=== PATIENT | female | born 2000 | race Two or more races ===

== ENCOUNTER 2019-01-15 06:07 | Emergency (ER) | payer MEDICAID, OTHER ==
[~2019-01-15] VITALS: Ht 142.2 cm; Wt 40.8 kg
[2019-01-15] MEDS ORDERED: IV NS 0.9% 1,000 ML BAG IV ONE (06:30)
[2019-01-15] MEDS ORDERED: LORAZEPAM INJ 2 MG/ML VIAL IV ONE (06:30)
[2019-01-15] MEDS ORDERED: LORAZEPAM INJ 2 MG/ML VIAL ONE (06:31)
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
[2019-01-15 06:41] LABS: BASOPHILS # (AUTO) 0.1 /CMM (0.0-0.2); BASOPHILS % (AUTO) 0.7 % (0.0-2.0); EOSINOPHILS % (AUTO) 1.3 % (0.0-6.0); HEMATOCRIT 36 % (33-45); LYMPHOCYTES # (AUTO) 1.8 /CMM (0.8-4.8); LYMPHOCYTES % (AUTO) 16.7 % (20.0-44.0); MEAN CORPUSCULAR HGB CONC 33 g/dl (31.0-36.0); MEAN CORPUSCULAR VOLUME 80 fL (82-100); MONOCYTES # (AUTO) 0.8 /CMM (0.1-1.30); MONOCYTES % (AUTO) 7.2 % (2.0-12.0); NEUTROPHILS # (AUTO) 8.2 /CMM (1.8-8.9); NEUTROPHILS % (AUTO) 74.1 % (43.0-81.0); PLATELET COUNT (AUTO) 246 /CMM (150-450); RED BLOOD CELL COUNT(AUTO) 4.52 MIL/uL (4.0-5.2); WHITE BLOOD COUNT (AUTO) 11.1 K/uL (4.3-11.0)
[2019-01-15 06:47] LABS: CALCIUM, SERUM 8.8 mg/dL (8.5-10.1); CARBON DIOXIDE 22 mmol/L (21-32); CHLORIDE 100 mmol/L (98-107); CREATININE 0.6 mg/dL (0.6-1.3); GLUCOSE 117 mg/dL (74-106); SODIUM SERUM 136 mmol/L (136-145); UREA NITROGEN, BLOOD 9 mg/dL (7-18)
[2019-01-15 06:49] LABS: POTASSIUM 2.6 mmol/L (3.5-5.1)
[2019-01-15] MEDS ORDERED: POTASSIUM CHLORIDE 20 MEQ TAB.PRT.SR PO ONE ×2 (06:56→07:00)
[2019-01-15 06:58] LABS: ACETAMINOPHEN < 2 ug/ml (10-30); ALANINE AMINOTRANSFERASE 21 U/L (12-78); ALCOHOL, BLOOD < 3 mg/dL (0-0); ALKALINE PHOSPHATASE 70 U/L (46-116); ASPARTATE AMINOTRANSFERASE 17 U/L (15-37); BILIRUBIN,DIRECT 0.2 mg/dL (0.0-0.2); SALICYLATE < 2.8 mg/dL (2.8-20.0); TOTAL PROTEIN, SERUM 8.2 g/dL (6.4-8.2)
[2019-01-15 07:08] LABS: APPEARANCE,URINE SL CLOUDY (CLEAR); BILIRUBIN,URINE 1+ (NEGATIVE); BLOOD, URINE NEGATIVE Ery/uL (NEGATIVE); COLOR,URINE DARK YELLO (YELLOW); KETONES,URINE 3+ (NEGATIVE); LEUKOCYTE ESTERASE ,URINE NEGATIVE (NEGATIVE); NITRITE, URINE NEGATIVE (NEGATIVE); PROTEIN,URINE 2+ mg/dl (NEGATIVE); UGLUCOSE NEGATIVE (NEGATIVE)
--- NOTE | 2019-01-15 07:13 | NUR ---
ENDORSED REPORT TO TIP
[2019-01-15 07:28] LABS: BACTERIA,URINE Few /HPF (None Seen); MUCUS,URINE Few /LPF (None Seen); RBC,URINE 0-2 /HPF (0-2); WBC,URINE 0-2 /HPF (0-3)
[2019-01-15 07:29] LABS: COARSE GRANULAR CASTS,URINE Few /LPF (None Seen); URINE AMORPHOUS URATE Few /HPF (None Seen)
--- NOTE | 2019-01-15 08:45 | NUR ---
[facility] service on site and seen the patient.
--- NOTE | 2019-01-15 10:00 | NUR ---
Patient pulled out her IV MD made aware.
[2019-01-15] MEDS ORDERED: OLANZAPINE 5 MG TABLET PO ONE (10:30)
[2019-01-15] MEDS ORDERED: OLANZAPINE 5 MG TABLET ONE (10:31)
--- NOTE | 2019-01-15 14:17 | NUR ---
DANICA met with pt. bedside. Pt. has a sitter bedside for safety. SW asked pt. again for a contact number for her sister or family member. Pt. refuses to give the contact information and continues to state, " they are not my family." Pt. states her home address is [address] [place] [address], [address], [place]. [place]. Pt. states, she will take a taxi home. DANICA again requested for a contact number for family, pt. still refused to give it to SW.
[2019-01-15] MEDS ORDERED: OLANZAPINE 5 MG TABLET PO SCH (17:00)
[2019-01-15 18:39] VITALS: BP 120/81
--- NOTE | 2019-01-15 18:40 | NUR ---
Patient discharged to home in stable condition. Written and verbal after care instructions given. Patient verbalizes understanding of instruction.IV removed. Catheter intact and site benign. Pressure and 4x4 applied to site. No bleeding noted. Tap card provided.
== END 2019-01-15 18:39 | disposition home or self-care (01) ==
LOC: ER 06:09
DX: F29 Unspecified psychosis not due to a substance or known physiological condition (principal); E87.6 Hypokalemia; R00.0 Tachycardia, unspecified; R51 Headache
CPT/HCPCS: 36415; 70450; 80048; 80076; 80305; 80307; 80329; 81001; 84703; 85025; 93005; 96374; 99284; G0480; J2060; J7030; 81000-TC